=== PATIENT | male | born 1965 | race Caucasian/White ===

== ENCOUNTER 2023-04-11 10:45 | Day surgery (SDC) | payer OTHER ==
[~2023-04-11] VITALS: Ht 167.6 cm; Wt 120.2 kg
[~2023-04-11 10:45] MED LIST: LIDOCAINE 2%, 20 ML MDV ONE; NORMAL SALINE 10 ML VIAL ONE; iopamidoL 50 ML VIAL IV ONE; methylPREDNISolone ACETATE 40 MG/ML ONE
[2023-04-11 12:27] VITALS: O2SAT 95
[2023-04-11] MEDS: DIPHENHYDRAMINE INJ 50 MG/ML VIAL ONE (13:31)
[2023-04-11] MEDS: fentaNYL CITRATE/PF 100 MCG/2 ML AMP ONE (13:32)
[2023-04-11] MEDS: MIDAZOLAM HCL 5 MG/5 ML VIAL ONE (13:33)
[2023-04-11 14:06] VITALS: BP_SYST 138; PULSE 79; RESP 16
== END 2023-04-11 14:20 | disposition home or self-care (01) ==
LOC: SDS 10:45 → SMU 10:48 → SDS 14:20
PROVIDERS: ATTEND Internal Medicine
DX: M51.16 Intervertebral disc disorders with radiculopathy, lumbar region (principal); E11.9 Type 2 diabetes mellitus without complications; G47.30 Sleep apnea, unspecified; Z98.890 Other specified postprocedural states
CPT/HCPCS: 62323; J1200; J1030; J2250; J3010; Q9967; 76000; J2001